=== PATIENT | male | born 1995 | race African-American/Black ===

== ENCOUNTER 2020-04-21 19:51 | Emergency (ER) | payer OTHER ==
[~2020-04-21] VITALS: Ht 182.9 cm; Wt 104.3 kg
[2020-04-21 20:42] LABS: ABSOLUTE NEUTROPHILS 7.4 thou/uL (1.4-8.2); BASOPHILS 0.8 % (0.0-2.0); EOSINOPHILS 0.7 % (0.0-3.0); HEMATOCRIT 46.8 % (42.0-52.0); HEMOGLOBIN 15.6 gm/dL (14.0-18.0); LYMPHOCYTES 20.9 % (24.0-44.0); MCH 24.7 pg (26.0-34.0); MCHC 33.4 g/dL (28.0-37.0); MCV 73.8 fL (80.0-100.0); MONOCYTES 11.9 % (1.0-8.0); PLATELET COUNT 314 thou/uL (150-400); POLYS 65.7 % (36.0-66.0); RBC 6.33 mil/uL (4.50-6.00); RDW 14.1 % (10.5-14.5); WBC 11.2 thou/uL (4.0-11.0)
[2020-04-21 20:54] LABS: CALCIUM 9.4 mg/dL (8.5-10.1); CREATININE 1.2 mg/dL (0.7-1.3); POTASSIUM 3.2 mmol/L (3.5-5.1)
[2020-04-21 21:00] LABS: ALBUMIN 5.4 g/dL (3.4-5.0); DIRECT BILIRUBIN 0.2 mg/dL (<0.1-0.2); TOTAL BILIRUBIN 1.1 mg/dL (0.2-1.0); TOTAL PROTEIN 9.3 g/dL (6.4-8.2)
[2020-04-21] MEDS ORDERED: CARAFATE 1 GM TA1 G1 PO (22:29)
[2020-04-21] MEDS ORDERED: ONDANSETRON HCL4 M2 PO (22:29)
[2020-04-21 22:55] VITALS: BP 149/103
== END 2020-04-21 22:56 | disposition home or self-care (01) ==
LOC: ER 19:51
PROVIDERS: Nurse Practitioner
DX: R11.2 Nausea with vomiting, unspecified (principal); R10.13 Epigastric pain; F17.210 Nicotine dependence, cigarettes, uncomplicated